=== PATIENT | male | born 1960 | race Caucasian/White ===

== ENCOUNTER 2019-09-08 09:00 | Outpatient (RCR) | payer OTHER | END 2019-09-09 | LOC: PT 09:00 | PROVIDERS: ATTEND Specialist | DX: M24.561 Contracture, right knee (principal); S84.801A Injury of other nerves at lower leg level, right leg, initial encounter | CPT/HCPCS: 97110 ×9; 97112 ×4; 97139; G0283 ×2 ==

== ENCOUNTER 2019-09-27 13:00 | Outpatient (RCR) | payer OTHER | END 2019-10-10 | LOC: PT 13:00 | PROVIDERS: ATTEND Specialist | DX: M24.561 Contracture, right knee (principal); M25.561 Pain in right knee; M62.81 Muscle weakness (generalized); R26.9 Unspecified abnormalities of gait and mobility; R26.2 Difficulty in walking, not elsewhere classified | CPT/HCPCS: 97032; 97110 ×6; 97112 ×2; G0283 ×3 ==